=== PATIENT | female | born 1975 | race Caucasian/White ===

== ENCOUNTER → 2018-02-18 10:20 | Outpatient (CLI) | payer OTHER, SELFPAY ==
[2018-02-18 12:29] LABS: Free T3 2.7 pg/mL (2.18-3.98); T4 Free Direct 0.94 ng/dL (0.76-1.46); Thyroid Stim Hormone (TSH) 1.66 uIU/mL (0.358-3.74)
== END ==
PROVIDERS: Family Provider Internal Medicine; PCP Internal Medicine; Referring Provider Internal Medicine; Visit Provider Internal Medicine
DX: R63.5 Abnormal weight gain (principal)
CPT/HCPCS: 36415; 84439; 84443; 84481

== ENCOUNTER → 2018-03-07 14:55 | Outpatient (CLI) | payer OTHER, SELFPAY ==
--- NOTE | 2018-03-07 14:58 | BI_ITS ---
MAMMOGRAPHY - BILATERAL SCREENING REASON FOR EXAM: Female, 42 years old. Routine annual screening examination. PERTINENT HISTORY: Non-contributory. TECHNIQUE: Digital bilateral breast mauricio (3D mammographic acquisition) in the CC and MLO projections. 2-D mediolateral oblique (MLO) and craniocaudad (CC) views of both breasts were obtained. CAD: Full Field Digital Mammography with Computer Added Detection was performed. COMPARISON: Comparison is made with prior examination dated March 01, 2017 and February 25, 2016. FINDINGS: Breast Composition: The breasts are heterogeneously dense, which may obscure small masses. There are no dominant masses or suspicious calcifications. Stable small bilateral axillary lymph nodes. No other significant abnormalities are identified. There has been no significant change since the prior study. BI/SCREENING MAMM (CAD), BILAT IMPRESSION: Stable bilateral screening mammogram. Yearly follow-up mammogram recommended. (A) ASSESSMENT CATEGORY: BIRADS Category 2: Benign. A letter regarding these results will be sent to the patient by the facility within 30 days. Approximately 10% of breast cancers are not detected by mammography. A normal mammogram should not delay biopsy of a clinically suspicious abnormality. [id number] Electronically Signed: Luis Angel Bettencourt MD at 16:06 EST Tel [phone], Service support ,
== END ==
PROVIDERS: Family Provider Internal Medicine; PCP Internal Medicine; Referring Provider Obstetrics & Gynecology; Visit Provider Obstetrics & Gynecology
DX: Z12.31 Encounter for screening mammogram for malignant neoplasm of breast (principal)
CPT/HCPCS: 77063; 77067

== ENCOUNTER → 2019-03-10 15:01 | Outpatient (CLI) | payer OTHER, SELFPAY ==
--- NOTE | 2019-03-10 15:03 | BI_ITS ---
MAMMOGRAPHY - BILATERAL SCREENING REASON FOR EXAM: Female, 43 years old. Routine annual screening examination. PERTINENT HISTORY: Non-contributory. TECHNIQUE: Digital bilateral breast dheeraj (3D mammographic acquisition) in the CC and MLO projections. 2-D mediolateral oblique (MLO) and craniocaudad (CC) views of both breasts were obtained. CAD: Full Field Digital Mammography with Computer Added Detection was performed. COMPARISON: Comparison is made with prior study dated March 07, 2019 and March 01, 2017. FINDINGS: Breast Composition: The breasts are heterogeneously dense, which may obscure small masses. There are no dominant masses or suspicious calcifications. No other significant abnormalities are identified. There has been no significant change since the prior study. BI/SCREEN MAMM (CAD) W/DHEERAJ BILAT IMPRESSION: Stable bilateral screening mammogram. Yearly follow-up mammogram recommended. (A) ASSESSMENT CATEGORY: BIRADS Category 1: Negative. A letter regarding these results will be sent to the patient by the facility within 30 days. Approximately 10% of breast cancers are not detected by mammography. A normal mammogram should not delay biopsy of a clinically suspicious abnormality. [id number] Electronically Signed: Luis Angel Bettencourt, at 8:32 EST , Service support ,
== END ==
PROVIDERS: Family Provider Internal Medicine; PCP Internal Medicine; Referring Provider Obstetrics & Gynecology; Visit Provider Obstetrics & Gynecology
DX: Z12.31 Encounter for screening mammogram for malignant neoplasm of breast (principal)
CPT/HCPCS: 77063; 77067

== ENCOUNTER → 2020-03-11 14:55 | Outpatient (CLI) | payer OTHER, SELFPAY ==
--- NOTE | 2020-03-11 14:56 | BI_ITS ---
MAMMOGRAPHY - BILATERAL SCREENING REASON FOR EXAM: Female, 44 years old. Routine annual screening examination. PERTINENT HISTORY: Non-contributory. History of melanoma. TECHNIQUE: Digital bilateral breast dheeraj (3D mammographic acquisition) in the CC and MLO projections. 2-D mediolateral oblique (MLO) and craniocaudad (CC) views of both breasts were obtained. CAD: Full Field Digital Mammography with Computer Added Detection was performed. COMPARISON: Comparison is made with prior study dated 03/10/2019 and 03/07/2018. FINDINGS: Breast Composition: The breasts are heterogeneously dense, which may obscure small masses. There are no dominant masses or suspicious calcifications. No other significant abnormalities are identified. There has been no significant change since the prior study. BI/SCREEN MAMM (CAD) W/DHEERAJ BILAT IMPRESSION: Stable bilateral screening mammogram. Yearly follow-up mammogram recommended. (A) ASSESSMENT CATEGORY: BIRADS Category 1: Negative. A letter regarding these results will be sent to the patient by the facility within 30 days. Approximately 10% of breast cancers are not detected by mammography. A normal mammogram should not delay biopsy of a clinically suspicious abnormality. [id number] Electronically Signed: Luis Angel Bettencourt, at 15:59 EST , Service support ,
== END ==
PROVIDERS: PCP Internal Medicine; Referring Provider Internal Medicine; Visit Provider Internal Medicine
DX: Z12.31 Encounter for screening mammogram for malignant neoplasm of breast (principal)
CPT/HCPCS: 77063; 77067

== ENCOUNTER → 2021-03-14 07:16 | Outpatient (CLI) | payer OTHER, SELFPAY ==
--- NOTE | 2021-03-14 07:18 | BI_ITS ---
MAMMOGRAPHY - BILATERAL SCREENING REASON FOR EXAM: Female, 45 years old. Routine annual screening examination. PERTINENT HISTORY: Non-contributory. TECHNIQUE: Digital bilateral breast dheeraj (3D mammographic acquisition) in the CC and MLO projections. 2-D mediolateral oblique (MLO) and craniocaudad (CC) views of both breasts were obtained. CAD: Full Field Digital Mammography with Computer Added Detection was performed. COMPARISON: Comparison is made with prior examination dated 03/11/2020 and 03/10/2019. FINDINGS: Breast Composition: The breasts are heterogeneously dense, which may obscure small masses. There are no dominant masses or suspicious calcifications. No other significant abnormalities are identified. There has been no significant change since the prior study. BI/SCRN MAMM (CAD)W/DHEERAJ BILAT IMPRESSION: Stable bilateral screening mammogram. Yearly follow-up mammogram recommended. (A) ASSESSMENT CATEGORY: BIRADS Category 1: Negative. A letter regarding these results will be sent to the patient by the facility within 30 days. Approximately 10% of breast cancers are not detected by mammography. A normal mammogram should not delay biopsy of a clinically suspicious abnormality. [id number] Electronically Signed: Luis Angel Bettencourt MD at 8:23 EST , Service support ,
== END ==
PROVIDERS: PCP Internal Medicine; Referring Provider Internal Medicine; Visit Provider Internal Medicine
DX: Z12.31 Encounter for screening mammogram for malignant neoplasm of breast (principal)
CPT/HCPCS: 77063; 77067

== ENCOUNTER → 2022-03-16 | Outpatient (CLI) | payer OTHER, SELFPAY ==
--- NOTE | 2022-03-16 07:36 | BI_ITS ---
MAMMOGRAPHY - BILATERAL SCREENING REASON FOR EXAM: Female, 46 years old. Routine annual screening examination. PERTINENT HISTORY: Non-contributory. TECHNIQUE: Digital bilateral breast dheeraj (3D mammographic acquisition) in the CC and MLO projections. 2-D mediolateral oblique (MLO) and craniocaudad (CC) views of both breasts were obtained. CAD: Full Field Digital Mammography with Computer Added Detection was performed. COMPARISON: Comparison is made with prior study dated 03/14/2021 and 03/11/2020. FINDINGS: Breast Composition: The breasts are heterogeneously dense, which may obscure small masses. There are no dominant masses or suspicious calcifications. No other significant abnormalities are identified. There has been no significant change since the prior study. BI/SCRN MAMM (CAD)W/DHEERAJ BILAT IMPRESSION: Stable bilateral screening mammogram. Yearly follow-up mammogram recommended. (A) ASSESSMENT CATEGORY: BIRADS Category 1: Negative. A letter regarding these results will be sent to the patient by the facility within 30 days. Approximately 10% of breast cancers are not detected by mammography. A normal mammogram should not delay biopsy of a clinically suspicious abnormality. [id number] Electronically Signed: Luis Angel Bettencourt MD at 8:26 EST ,
== END | disposition home or self-care (01) ==
LOC: OPBI 07:31
PROVIDERS: PCP Internal Medicine; Referring Provider Internal Medicine; Visit Provider Internal Medicine
DX: Z12.31 Encounter for screening mammogram for malignant neoplasm of breast (principal)
CPT/HCPCS: 77063; 77067

== ENCOUNTER → 2023-03-19 | Outpatient (CLI) | payer OTHER, SELFPAY ==
--- NOTE | 2023-03-19 07:16 | BI_ITS ---
MAMMOGRAPHY - BILATERAL SCREENING REASON FOR EXAM: Female, 47 years old. Routine annual screening examination. PERTINENT HISTORY: Non-contributory. TECHNIQUE: Digital bilateral breast dheeraj (3D mammographic acquisition) in the CC and MLO projections. 2-D mediolateral oblique (MLO) and craniocaudad (CC) views of both breasts were obtained. CAD: Full Field Digital Mammography with Computer Added Detection was performed. COMPARISON: Comparison is made with prior study dated March 16, 2022 and March 14, 2021. FINDINGS: Breast Composition: The breasts are heterogeneously dense, which may obscure small masses. There are no dominant masses or suspicious calcifications. No other significant abnormalities are identified. There has been no significant change since the prior study. BI/SCRN MAMM (CAD)W/DHEERAJ BILAT IMPRESSION: Stable bilateral screening mammogram. Yearly follow-up mammogram recommended. (A) ASSESSMENT CATEGORY: BIRADS Category 1: Negative. A letter regarding these results will be sent to the patient by the facility within 30 days. Approximately 10% of breast cancers are not detected by mammography. A normal mammogram should not delay biopsy of a clinically suspicious abnormality. [id number] Electronically Signed: Luis Angel Bettencourt MD at 8:51 EST ,
== END | disposition home or self-care (01) ==
PROVIDERS: PCP Internal Medicine; Referring Provider Internal Medicine; Visit Provider Internal Medicine
DX: Z12.31 Encounter for screening mammogram for malignant neoplasm of breast (principal)
CPT/HCPCS: 77063; 77067

== ENCOUNTER 2023-04-21 07:41 | Day surgery (SDC) | payer OTHER, SELFPAY ==
--- NOTE | 2023-04-20 08:45 | COLBX_PTH ---
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 Fritz Coker DO : 1975 BED: DIS: 04/21/2023 SPEC #: [id number] RECD: 04/21/23 11:35 STATUS: JIMMY LIU #: [id number] AVERY: 04/20/23 08:[address]: Fritz Coker DEPT: SURGICAL PATHOLOGY RECD BY: Marge Lyons ENTERED: 04/21/23 11:36 SP TYPE: COLON BX OTHR DR: Dr. Sheree Evans DO Tissues: Sigmoid colon biopsy Rectum, NOS Procedures: Surgery Specimen Level IV HEADER OPERATION: Colonoscopy - open access PRE-OP DIAGNOSIS: Routine colon screening TISSUE SUBMITTED: A - Sigmoid polyp, B - Rectal polyp MICROSCOPIC DIAGNOSIS A. Sigmoid polyp, biopsy: Hyperplastic polyp. B. Rectal polyp, biopsy: Hyperplastic polyp. NIURKA:[email or web address] 04/22/2023 MICROSCOPIC DESCRIPTION Slides are reviewed. GROSS DESCRIPTION A - Received in fixative is one container labeled with the patient's name and designated sigmoid polyp. The specimen consists of one irregular fragment of light lynch soft tissue that measures 0.8 x 0.2 x 0.1 cm. The specimen is totally submitted in one cassette. B - Received in fixative is one container labeled with the patient's name and designated rectal polyp. The specimen consists of one irregular fragment of light lynch soft tissue that measures 0.3 x 0.3 x 0.1 cm. The specimen is totally submitted in one cassette. / NIURKA:rodolfo 04/21/2023 TC:1 CPT: 69403 x2
--- OUTSIDE RECORDS SUMMARY | 2023-04-21 07:51 | XMS RPT_ITS | CCD ---
Author Name Unknown Address [address] [place] [address] Organization [facility] Care Team Providers Care Engineering Job Titles Name Role Phone Cristina Sheree Unavailable SheriElianaen Isrrael Unavailable Cristina Sheree Unavailable Nicolasa Kohli Unavailable Estefany Estrada Unavailable Rosina Wolf Unavailable Hasmukh Angeloa Unavailable Unavailable Unavailable Unavailable Cristina Sheree Unavailable Unavailable Cristina Sheree Unavailable Unavailable Cristina Sheree Unavailable Rosina Wolf Unavailable Gravius, Emilie Unavailable Unavailable Regino, eda Unavailable Unavailable Unavailable Unavailable Hawa Martinez Unavailable Unavailable Sheree Evans DO Unavailable Estefany Estrada Unavailable Sheri Tran Rosina Unavailable Vic PATIENT AMBASSADOR, RIO Unavailable Unavailable Regino, eda Unavailable Unavailable Slarb PATIENT AMBASSADOR, Cortney Unavailable Unavailable Gravius PROCESS LABORATORY SPECIALIST, Emilie Unavailable Unavailable Unavailable Unavailable Cristina SAXENA Sheree Unavailable [phone] Timmy Smith MD Unavailable [phone] [place] PATIENT AMBASSADOR, Stefano Unavailable Unavailable Allergies Allergy Classification Reported Allergen(s) Allergy Type Date of Onset Reaction(s) Facility (8 sources) Sulfonamides (Antibiotic); Translations: [Sulfa Drugs] allergy to substance [facility] Work Phone: Medications Completed/Discontinued Medications Medication Drug Class(es) Dates Sig (Normalized) Sig (Original) cefdinir 300 mg oral capsule (8 sources) Cephalosporin Antibacterial Start: 05-01-2009 End: 09-08-2012 take 1 capsule by mouth twice daily OMNICEF, 300MG (Oral Capsule) 1 (one) Capsule bid for 0 days Quantity: 14 {Capsule} Refills: 0 Ordered: 01-May-2009 Tesha Wilson RN Start : 01-May-2009 End : 08-Sep-2012 Discontinued Comments: This order discontinued per [facility]. Problems Active Problems Problem Classification Problem Date Documented Da te Episodic/Chronic Abdominal pain (18 sources) Generalized abdominal pain; Translations: [Abdominal pain] Resolved: 08-25-2013 02-18-2015 Episodic Administrative/social admission (10 sources) Counseling procedure with explicit context; Translations: [Patient encounter status] Resolved: 12-13-2020 02-16-2018 Episodic Cancer; other and unspecified primary (16 sources) H/O Malignant melanoma; Translations: [History of melanoma] 02-16-2018 Episodic Past or Other Problems Problem Classification Problem Date Documented Da te Episodic/Chronic Headache, including migraine (11 sources) Headache; Translations: [Tension-type headache] Onset: 05-01-2009 Resolved: 08-14-2008 01-08-2015 Episodic Results Test Name Value Interpretation Reference Range Facil ity Vital Signs Date Time Vital Sign Value Performing Clinician Facility 01-20-2023 10:53-0400 Body height 165.1 cm [facility] Work Phone: 01-20-2023 10:53-0400 Body mass index (BMI) [Ratio] 27.98 kg/m2 [facility] Work Phone: 01-20-2023 10:53-0400 Body surface area Derived from formula 1.84 m2 [facility] Work Phone: 01-20-2023 10:53-0400 Body temperature 97.4 [degF] Stefano Sang PATIENT AMBASSADOR [facility] Work Phone: 01-20-2023 10:53-0400 Body weight 76.26 kg [facility] Work Phone: 01-20-2023 10:53-0400 Diastolic blood pressure 72 mm[Hg] [facility] Work Phone: Encounters Encounter Date Encounter Type Care Provider Facility Start: 01-20-2023 End: 01-20-2023 Patient encounter status [facility] Work Phone: Start: 01-20-2023 End: 01-20-2023 Periodic preventive med est patient 40-64yrs Sheree Cristina DO Work Phone: [facility] Start: 12-15-2021 End: 12-15-2021 Patient encounter status Sheree Cristina DO Work Phone: [facility] Work Phone: Start: 12-15-2021 End: 12-15-2021 Periodic preventive med est patient 40-64yrs Sheree Cristina DO Work Phone: [facility] Start: 05-26-2021 End: 05-26-2021 Phone Encounter Sheree Cristina DO Work Phone: [facility] Start: 02-07-2021 End: 02-07-2021 Annotation/Addendum Sheree Cristina DO Work Phone: [facility] Start: 02-07-2021 End: 02-07-2021 Patient encounter status eda Lacy [facility] Work Phone: Start: 12-13-2020 End: 12-13-2020 Periodic preventive med est patient 40-64yrs Sheree Cristina DO Work Phone: [facility] Start: 12-13-2020 End: 12-13-2020 Physical examination RIO Ho PATIENT AMBASSADOR [facility] Work Phone: Start: 06-20-2020 End: 06-20-2020 Annotation/Addendum Sheree Evans [facility] Start: 12-14-2019 End: 12-14-2019 Periodic preventive med est patient 40-64yrs Sheree Evans [facility] Start: 12-14-2019 End: 12-14-2019 Physical examination Sheree Evans DO Work Phone: [facility] Work Phone: Start: 04-26-2019 End: 04-26-2019 Ophthalmic examination and evaluation Sheree Evans DO Work Phone: [facility] Start: 04-26-2019 End: 04-26-2019 Phone Encounter Sheree Evans [facility] Start: 04-25-2019 End: 02-07-2021 Annotation/Addendum Sheree Evans DO Work Phone: [facility] Start: 04-25-2019 End: 02-07-2021 Patient encounter status Sheree Evans DO Work Phone: [facility] Start: 04-25-2019 Review [facility] Start: 04-19-2019 End: 04-19-2019 Phone Encounter Sheree Evans [facility] Start: 02-17-2018 Patient encounter procedure Sheree Evans [facility] Start: 02-16-2018 End: 02-16-2018 Patient encounter procedure Sheree Evans DO Work Phone: [facility] Start: 02-16-2018 End: 02-16-2018 Periodic preventive med est patient 40-64yrs Sheree Evans [facility] Start: 03-31-2017 End: 03-31-2017 Annotation/Addendum Sheree Evans [facility] Start: 03-16-2017 End: 03-16-2017 Phone Encounter Sheree Evans [facility] Start: 08-25-2013 End: 08-25-2013 Patient encounter Sheree Evans [facility] Start: 08-25-2013 End: 08-25-2013 Physical examination Sheree Evans DO Work Phone: [facility] Start: 09-09-2012 End: 09-09-2012 Phone Encounter Sheree Evans [facility] Start: 09-08-2012 End: 09-08-2012 Patient encounter Sheree Evans [facility] Start: 05-01-2009 End: 05-01-2009 Patient encounter Sheree Evans [facility] Start: 03-28-2009 End: 03-28-2009 Phone Encounter Sheree Evans [facility] Start: 04-25-2007 End: 04-25-2007 Office outpatient visit 25 minutes Sheree Evans [facility] Start: 04-21-2007 End: 04-21-2007 Historical Summary Sheree Evans [facility] Ophthalmic examinati on and evaluation RIO Ho LPN [facility] Work Phone: Ophthalmic examinati on and evaluation Emilie Garcia [facility] Work Phone: Patient encounter procedure RIO Ho LPN [facility] Work Phone: Patient encounter procedure Emilie Garcia [facility] Work Phone: Patient encounter procedure Emilie Garcia [facility] Work Phone: Patient encounter procedure Stefano Domínguez [facility] Work Phone: Patient encounter status Sheree Evans DO Work Phone: [facility] Work Phone: Physical examination Emiliejose francisco Adamskristie [facility]; [facility] Work Phone: Procedures Date Procedure Procedure Detail Performing Clinician Start: 03-16-2022 End: 03-16-2022 SCRN MAMM (CAD)W/DHEERAJ BILAT Procedure Note: See Note; NOTES: [facility] Imaging Services [address] [place] [address] SCRN MAMM (CAD)W/DHEERAJ BILAT MR#: [id number] Acct: [id number] Name: VINITA PLUMMER Rep #: [id number] : 1975 F 46 From: Luis Angel bonilla MD PCP: Dr. Sheree Evans DO Status: REG CLI Study: SCRN MAMM (CAD)W/DHEERAJ BILAT Date of Exam: 03/05 05/27 Exam# [id number] Ordering Dr: Sheree Eavns DO MAMMOGRAPHY - BILATERAL SCREENING REASON FOR EXAM: Female, 46 years old. Routine annual screening examination. PERTINENT HISTORY: Non-contributory. TECHNIQUE: Digital bilateral breast dheeraj (3D mammographic acquisition) in the CC and MLO projections. 2-D mediolateral oblique (MLO) and craniocaudad (CC) views of both breasts were obtained. CAD: Full Field Digital Mammography with Computer Added Detection was performed. COMPARISON: Comparison is made with prior study dated 03/14/2021 and 03/11/2020. FINDINGS: Breast Composition: The breasts are heterogeneously dense, which may obscure small masses. There are no dominant masses or suspicious calcifications. No other significant abnormalities are identified. There has been no significant change since the prior study. BI/SCRN MAMM (CAD)W/DHEERAJ BILAT IMPRESSION: Stable bilateral screening mammogram. Yearly follow-up mammogram recommended. (A) ASSESSMENT CATEGORY: BIRADS Category 1: Negative. A letter regarding these results will be sent to the patient by the facility within 30 days. Approximately 10% of breast cancers are not detected by mammography. A normal mammogram should not delay biopsy of a clinically suspicious abnormality. [id number] Electronically Signed: Luis Angel Bettencourt MD at 8:26 EST , CC: Dr. Sheree Evans DO Ed Teacher: Signed Sheree Evans DO Work Phone: Start: 03-14-2021 End: 03-14-2021 SCRN MAMM (CAD)W/DHEERAJ BILAT Comments: See Note; NOTES: [facility] Imaging Services [address] [place] [address] SCRN MAMM (CAD)W/DHEERAJ BILAT MR#: [id number] Acct: [id number] Name: VINITA PLUMMER Rep #: [id number] : 1975 F 45 From: Luis Angel bonilla MD PCP: Dr. Sheree Evans DO Status: REG CLI Study: SCRN MAMM (CAD)W/DHEERAJ BILAT Date of Exam: 03/05 Exam# [id number] Ordering Dr: Sheree Evans DO MAMMOGRAPHY - BILATERAL SCREENING REASON FOR EXAM: Female, 45 years old. Routine annual screening examination. PERTINENT HISTORY: Non-contributory. TECHNIQUE: Digital bilateral breast dheeraj (3D mammographic acquisition) in the CC and MLO projections. 2-D mediolateral oblique (MLO) and craniocaudad (CC) views of both breasts were obtained. CAD: Full Field Digital Mammography with Computer Added Detection was performed. COMPARISON: Comparison is made with prior examination dated 03/11/2020 and 03/10/2019. FINDINGS: Breast Composition: The breasts are heterogeneously dense, which may obscure small masses. There are no dominant masses or suspicious calcifications. No other significant abnormalities are identified. There has been no significant change since the prior study. BI/SCRN MAMM (CAD)W/DHEERAJ BILAT IMPRESSION: Stable bilateral screening mammogram. Yearly follow-up mammogram recommended. (A) ASSESSMENT CATEGORY: BIRADS Category 1: Negative. A letter regarding these results will be sent to the patient by the facility within 30 days. Approximately 10% of breast cancers are not detected by mammography. A normal mammogram should not delay biopsy of a clinically suspicious abnormality. [id number] Electronically Signed: Luis Angel Bettencourt MD at 8:23 EST , Service support , CC: Dr. Sheree Evans DO Ed Teacher: Signed Sheree Evans DO Work Phone: Start: 03-11-2020 End: 03-11-2020 SCREEN MAMM (CAD) W/DHEERAJ BILAT Comments: See Note; NOTES: [facility] Imaging Services [address] [place] [id number] SCREEN MAMM (CAD) W/DHEERAJ BILAT MR#: [id number] Acct: [id number] Name: VINITA PLUMMER Rep #: [id number] : 1975 F 44 From: Luis Angel bonilla MD PCP: Dr. Sheree Evans DO Status: REG CLI Study: SCREEN MAMM (CAD) W/DHEERAJ BILAT Date of Exam: 05/12/19 Exam# [id number] Ordering Dr: Sheree Evans DO MAMMOGRAPHY - BILATERAL SCREENING REASON FOR EXAM: Female, 44 years old. Routine annual screening examination. PERTINENT HISTORY: Non-contributory. History of melanoma. TECHNIQUE: Digital bilateral breast dheeraj (3D mammographic acquisition) in the CC and MLO projections. 2-D mediolateral oblique (MLO) and craniocaudad (CC) views of both breasts were obtained. CAD: Full Field Digital Mammography with Computer Added Detection was performed. COMPARISON: Comparison is made with prior study dated 03/10/2019 and 03/07/2018. FINDINGS: Breast Composition: The breasts are heterogeneously dense, which may obscure small masses. There are no dominant masses or suspicious calcifications. No other significant abnormalities are identified. There has been no significant change since the prior study. BI/SCREEN MAMM (CAD) W/DHEERAJ BILAT IMPRESSION: Stable bilateral screening mammogram. Yearly follow-up mammogram recommended. (A) ASSESSMENT CATEGORY: BIRADS Category 1: Negative. A letter regarding these results will be sent to the patient by the facility within 30 days. Approximately 10% of breast cancers are not detected by mammography. A normal mammogram should not delay biopsy of a clinically suspicious abnormality. [id number] Electronically Signed: Luis Angel Bettencourt, at 15:59 EST , Service support , CC: Dr. Sheree Evans DO Ed Teacher: Signed Sheree Evans Work Phone: Start: 03-10-2019 End: 03-13-2019 SCREEN MAMM (CAD) W/DHEERAJ BILAT Comments: See Note; NOTES: [facility] Imaging Services [address] [place] [address] SCREEN MAMM (CAD) W/DHEERAJ BILAT MR#: [id number] Acct: [id number] Name: VINITA PLUMMER Rep #: [id number] : 1975 F 43 From: Luis Angel Bettencourt MD PCP: Sheree Evans DO Status: [facility] Study: SCREEN MAMM (CAD) W/DHEERAJ BILAT Date of Exam: 03/10/19 Exam# [id number] Ordering Dr: Garima Cuevas MD MAMMOGRAPHY - BILATERAL SCREENING REASON FOR EXAM: Female, 43 years old. Routine annual screening examination. PERTINENT HISTORY: Non-contributory. TECHNIQUE: Digital bilateral breast dheeraj (3D mammographic acquisition) in the CC and MLO projections. 2-D mediolateral oblique (MLO) and craniocaudad (CC) views of both breasts were obtained. CAD: Full Field Digital Mammography with Computer Added Detection was performed. COMPARISON: Comparison is made with prior study dated March 07, 2019 and March 01, 2017. FINDINGS: Breast Composition: The breasts are heterogeneously dense, which may obscure small masses. There are no dominant masses or suspicious calcifications. No other significant abnormalities are identified. There has been no significant change since the prior study. BI/SCREEN MAMM (CAD) W/DHEERAJ BILAT IMPRESSION: Stable bilateral screening mammogram. Yearly follow-up mammogram recommended. (A) ASSESSMENT CATEGORY: BIRADS Category 1: Negative. A letter regarding these results will be sent to the patient by the facility within 30 days. Approximately 10% of breast cancers are not detected by mammography. A normal mammogram should not delay biopsy of a clinically suspicious abnormality. [id number] Electronically Signed: Luis Angel Bettencourt, at 8:32 EST , Service support , CC: Garima Cuevas MD; Sheree Evans DO Ed Teacher: Signed Sheree Evans Start: 03-07-2018 End: 03-07-2018 SCREENING MAMM (CAD), BILAT Comments: See Note; NOTES: [facility] Imaging Services [address] [place] [id number] SCREENING MAMM (CAD), BILAT MR#: [id number] Acct: [id number] Name: KAVITHAVINITA J Rep #: [id number] : 1975 F 42 From: Luis Angel Bettencourt MD PCP: Sheree Evans DO Status: [facility] Study: SCREENING MAMM (CAD), BILAT Date of Exam: 03/07/18 Exam# [id number] Ordering Dr: Garima Cuevas MD MAMMOGRAPHY - BILATERAL SCREENING REASON FOR EXAM: Female, 42 years old. Routine annual screening examination. PERTINENT HISTORY: Non-contributory. TECHNIQUE: Digital bilateral breast dheeraj (3D mammographic acquisition) in the CC and MLO projections. 2-D mediolateral oblique (MLO) and craniocaudad (CC) views of both breasts were obtained. CAD: Full Field Digital Mammography with Computer Added Detection was performed. COMPARISON: Comparison is made with prior examination dated March 01, 2017 and February 25, 2016. FINDINGS: Breast Composition: The breasts are heterogeneously dense, which may obscure small masses. There are no dominant masses or suspicious calcifications. Stable small bilateral axillary lymph nodes. No other significant abnormalities are identified. There has been no significant change since the prior study. BI/SCREENING MAMM (CAD), BILAT IMPRESSION: Stable bilateral screening mammogram. Yearly follow-up mammogram recommended. (A) ASSESSMENT CATEGORY: BIRADS Category 2: Benign. A letter regarding these results will be sent to the patient by the facility within 30 days. Approximately 10% of breast cancers are not detected by mammography. A normal mammogram should not delay biopsy of a clinically suspicious abnormality. [id number] Electronically Signed: Luis Angel Bettencourt MD at 16:06 EST Tel [phone], Service support , CC: Garima Cuevas MD; Sheree Evans DO Ed Teacher: Signed Sheree Evans Start: 04-05-2017 End: 04-05-2017 Excision of melanoma Tea Angelo Plan of Treatment Date Care Activity Detail Author Start: 01-20-2023 Procedure Education Eprescribed prescriptions (G8553) [facility] Work Phone: Start: 01-20-2023 Provider Instructions for Treatment Reviewed Lab [facility] Work Phone: Start: 12-15-2021 Procedure Education Eprescribed prescriptions (G8553) [facility] Work Phone: Start: 12-15-2021 Provider Instructions for Treatment Reviewed Lab [facility] Work Phone: Start: 12-13-2020 Provider Instructions for Treatment Reviewed Lab [facility] Work Phone: Start: 12-14-2019 Procedure Education Eprescribed prescriptions (G8553) [facility] Work Phone: Start: 12-14-2019 Provider Instructions for Treatment Reviewed Lab [facility] Work Phone: Start: 02-16-2018 Assay of thyroid stimulating hormone tsh TSH (81937) [facility] Work Phone: Start: 02-16-2018 Thyrotropin Qn TSH (47226) [facility] Work Phone: Start: 02-16-2018 Assay of free thyroxine T4, FREE (THYROXINE) (26314) [facility] Work Phone: Start: 02-16-2018 T4 free mass conc T4, FREE (THYROXINE) (02223) [facility] Work Phone: Start: 02-16-2018 Assay of triiodothyronine t3 free T3, FREE (TRIDOTHYRONINE) (52783) [facility] Work Phone: Start: 02-16-2018 T3 free mass conc T3, FREE (TRIDOTHYRONINE) (77945) [facility] Work Phone: Start: 02-16-2018 Procedure Education Eprescribed prescriptions (G8553) [facility] Work Phone: Start: 08-25-2013 Provider Instructions for Treatment Reviewed Lab [facility] Work Phone: Start: 05-01-2009 Provider Instructions for Treatment I/D Cyst/Abscess [facility] Work Phone: Start: 04-25-2007 Provider Instructions for Treatment exercises [facility] Work Phone: [facility] Work Phone: Encounter for an nual general medical examination with abnormal findings in adult : Eprescribed prescriptions (G8553) [facility] Work Phone: [facility] Work Phone: [facility] Work Phone: [facility] Work Phone: [facility] Work Phone: Payers Date Payer Category Payer Unknown [id number] 2006 Unknown [id number] 1975 Unknown [id number] Unknown Social History Date Type Detail Facility Alcohol Use [facility] Work Phone: Instructions Note Date & Type Note Facility [facility] Work Phone: Instructions Note Date & Type Note Facility [facility] Work Phone: Instructions Note Date & Type Note Facility [facility] Work Phone: Instructions Note Date & Type Note Facility [facility] Work Phone: Instructions Note Date & Type Note Facility [facility] Work Phone: Instructions Name Dates Details Encounter for annual general medical examination with abnormal findings in adult : How to access health information online Indication:Encounter for annual general medical examination with abnormal findings in adult Encounter for annual general medical examination with abnormal findings in adult : How to access health information online - Detail Indication:Encounter for annual general medical examination with abnormal findings in adult Encounter for annual general medical examination with abnormal findings in adult : Patient Instructions Indication:Encounter for annual general medical examination with abnormal findings in adult Constipation : Patient Instr uctions Indication:Constipation Name Dates Details How to access health informa tion online Indication:Non-smoker Start:14-Dec-2019 Instruction Type:Patient Education How to access health informa tion online - Detail Indication:Non-smoker Start:14-Dec-2019 Instruction Type:Patient Education Patient Instructions Indication:Non-smoker Start:14-Dec-2019 Instruction Type:Provider Instructions for Treatment How to access health informa tion online Indication:Encounter for annual general medical examination with abnormal findings in adult Start:16-Feb-2018 Instruction Type:Patient Education How to access health informa tion online - Detail Indication:Encounter for annual general medical examination with abnormal findings in adult Start:16-Feb-2018 Instruction Type:Patient Education Patient Instructions Indication:Encounter for annual general medical examination with abnormal findings in adult Start:16-Feb-2018 Instruction Type:Provider Instructions for Treatment Patient Instructions Indication:Constipation Start:08-Sep-2012 Instruction Type:Provider Instructions for Treatment Name Dates Details How to access health informa tion online Indication:Non-smoker Start:14-Dec-2019 Instruction Type:Patient Education How to access health informa tion online - Detail Indication:Non-smoker Start:14-Dec-2019 Instruction Type:Patient Education Patient Instructions Indication:Non-smoker Start:14-Dec-2019 Instruction Type:Provider Instructions for Treatment How to access health informa tion online Indication:Encounter for annual general medical examination with abnormal findings in adult Start:16-Feb-2018 Instruction Type:Patient Education How to access health informa tion online - Detail Indication:Encounter for annual general medical examination with abnormal findings in adult Start:16-Feb-2018 Instruction Type:Patient Education Patient Instructions Indication:Encounter for annual general medical examination with abnormal findings in adult Start:16-Feb-2018 Instruction Type:Provider Instructions for Treatment Patient Instructions Indication:Constipation Start:08-Sep-2012 Instruction Type:Provider Instructions for Treatment Summary Purpose Family History No Family History Records Found Advance Directives No Advanced Directives Records Found Additional Source Comments INFORMATION SOURCE (unrecogn ized section and content) FOR RECORDS PERTAINING TO PATIENTS WHO ARE OR HAVE BEEN ENROLLED IN A CHEMICAL DEPENDENCY/SUBSTANCEABUSE PROGRAM, SOME INFORMATION MAY BE OMITTED. This clinical summary was aggregated from multiple sources. Caution should be exercised in using it in the provision of clinical care. This summary normalizes information from multiple sources, and as a consequence, information in this document may materially change the coding, format and clinical context of patient data. In addition, data may be omitted in some cases. CLINICAL DECISIONS SHOULD BE BASED ON THE PRIMARY CLINICAL RECORDS. [facility]. provides no warranty or guarantee of the accuracy or completeness of information in this document.
[2023-04-21] MEDS: Lactated Ringers 1,000 ML 15 ML IV (08:01)
[2023-04-21 08:02] VITALS: BP 133/75; PULSE 83; RESP 18; TEMP 36.8; O2SAT 97; BMI 28.1
--- NOTE | 2023-04-21 09:00 | HP.PCM_ITS ---
[facility] - General General Date of Admission: 04/21/23 Date of Service: 04/21/23 Chief Complaint: Screening colonoscopy HPI Narrative VINITA PLUMMER, is a 47 F who presents today for screening colonoscopy. She has not had a colonoscopy in the past. She has no family history of colon cancer or colon polyps. She is in very good health she only takes control on a daily basis and a multivitamin. [facility] Medical History (Updated 04/19/23 @ 12:09 by Lisa Palmer) Alcohol use Cancer Migraine headache Non-smoker Wears contact lenses Home Medications multivitamin with minerals-folic acid 200 mcg chewable tablet 1 tab PO DAILY 04/19/23 [History Last Taken Unknown] norethindrone acetate 5 mg tablet 5 mg PO DAILY 04/19/23 [History Last Taken Unknown] Allergy/AdvReac Type Severity Reaction Status Date / Time Sulfa (Sulfonamide Allergy Hives Verified 04/19/23 12:03 Antibiotics) Surgical History (Updated 03/08/23 @ 08:32 by Marry Pacheco) History of left salpingo-oophorectomy Hx of hysterectomy Hx of melanoma excision Social History (Updated 03/08/23 @ 08:33 by Marry Pacheco) household members: spouse current occupational status: employed current occupation: RN Smoking Status: Never smoker ROS Review of Systems ROS Unobtainable: other Constitutional Constitutional: Denies fatigue, fever(s), poor appetite, weight gain or weight loss ENT HEENT: Denies mouth lesions Cardiovascular Cardiovascular: Denies abdominal bloating, abdominal edema or abdominal pain Respiratory/Chest Respiratory/Chest: Denies change in mental status, change in phlegm color, chest congestion or chest tightness Gastrointestinal Gastrointestinal: Denies belching, bloating, change in bowel habits, change in stool character, chewing difficulty, coffee ground emesis, constipation, cramping, diarrhea, dyspepsia, dysphagia, early satiety, excessive flatus, fecal incontinence, heartburn, hematemesis, hematochezia, hemorrhoids, loose stools, melena, nausea, odynophagia, rectal bleeding, tenesmus, vomiting or weight changes Genitourinary Genitourinary: Denies abdominal discomfort, burning urination or itching Musculoskeletal Musculoskeletal: Reports as per HPI; Denies muscle weakness or myalgias Integumentary Integumentary: Denies jaundice Neurologic Neurologic: Denies lack of coordination or weakness Psychiatric Psychiatric: Denies confusion, depression, memory loss, mood swings, paranoia or suicidal ideation Endocrine Endocrinology: Denies systems reviewed and no addt'l complaints, except as documented Hematologic/Lymphatic Hematologic/Lymphatic: Denies anemia, easy bleeding, easy bruising or lymphadenopathy Allergic/Immunologic Allergic/Immunologic: Denies systems reviewed and no addt'l complaints, except as documented Vital Signs Vital Signs Vital Signs: 04/21/23 08:02 04/21/23 08:02 Temperature 98.2 F Temperature Source Temporal Pulse Rate 83 Respiratory Rate 18 Respiratory Pattern Normal Blood Pressure 133/75 H Blood Pressure Mean 94 Blood Pressure Source Monitor Blood Pressure Position Semi-Fowlers Blood Pressure Location Right Arm Pulse Ox 97 Oxygen Delivery Method Room Air Weight Weight: 169 lb Body Mass Index (BMI) 28.1 Physical Exam Const alert General Appearance: cooperative Orientation / Consciousness: oriented to person HEENT hearing grossly normal bilaterally Head and Scalp: normal to inspection Face and Sinus: face symmetric Nose: external nose normal Mouth: oral and palatal mucosa normal Eyes conjunctivae normal General Eye: normal appearance of both eyes Neck full ROM General: normal visual inspection Lymph Lymphatic: no lymphadenopathy noted Chest inspection of chest normal and palpation of chest normal Chest: symmetrical chest wall rise Resp normal respiratory effort Effort and Inspection: able to speak in complete sentences Cardio regular rate GI non-distended Percussion: normal to percussion Rectal Exam: deferred Neuro Speech: speech normal Gait (Neuro): normal gait Assessment & Plan Assessment/Plan (1) Encounter for screening for malignant neoplasm of colon: PLAN: She was explained alternatives, risk, benefits including not withstanding bleeding, infection, sepsis, perforation, need for emergent surgery and . She will have an ASA of 2.
[2023-04-21 09:28] VITALS: BP 107/67; BP 133/75; PULSE 72; RESP 16; TEMP 36.6; O2SAT 97
[2023-04-21 09:30] VITALS: BP 101/74; BP 133/75; PULSE 72; RESP 16; O2SAT 97
--- NOTE | 2023-04-21 09:31 | OP.CCLET_ITS ---
04/21/2023 Sheree Evans [address] [place] [address] Re : Colonoscopy procedure for Cassandra Herzog Dear Dr. Evans This procedure was performed on Friday, April 21, 2023. My impressions and recommendations are as follows: Impressions : - Two 10 mm polyps in the rectum and in the sigmoid colon, removed with a cold snare. Resected and retrieved. - The examination was otherwise normal on direct and retroflexion views. Recommendations : - Discharge patient to home. - Resume previous diet. - Continue present medications. - Await pathology results. - Repeat colonoscopy in 5 years for surveillance. My findings are described in the full procedure note, which is enclosed. If I can be of further assistance, please feel free to contact me at . Sincerely, Fritz Coker, 04/21/2023 9:30:40 AM This report has been signed electronically.
--- NOTE | 2023-04-21 09:31 | OP.COLON_ITS ---
Patient Name: Cassandra Herzog Procedure Date: 04/21/2023 9:03 AM Date of : 1975 Age: 47 Procedure: Colonoscopy Indications: Screening for colorectal malignant neoplasm Providers: Fritz Coker DO Referring MD: Sheree Evans Medicines: Monitored Anesthesia Care Patient Profile: This is a 47 year old female. Refer to note in patient chart for documentation of history and physical. Last Colonoscopy: none. The patient's first colonoscopy is today. Complications: No immediate complications. Procedure: Pre-Anesthesia Assessment: - Prior to the procedure, a History and Physical was performed, and patient medications and allergies were reviewed. The patient is competent. The risks and benefits of the procedure and the sedation options and risks were discussed with the patient. All questions were answered and informed consent was obtained. Patient identification and proposed procedure were verified by the physician in the pre-procedure area. Mental Status Examination: alert and oriented. Airway Examination: normal oropharyngeal airway and neck mobility. Respiratory Examination: clear to auscultation. Prophylactic Antibiotics: The patient does not require prophylactic antibiotics. Prior Anticoagulants: The patient has taken no anticoagulant or antiplatelet agents. ASA Grade Assessment: II - A patient with mild systemic disease. After reviewing the risks and benefits, the patient was deemed in satisfactory condition to undergo the procedure. The anesthesia plan was to use monitored anesthesia care (MAC). Immediately prior to administration of medications, the patient was re-assessed for adequacy to receive sedatives. The heart rate, respiratory rate, oxygen saturations, blood pressure, adequacy of pulmonary ventilation, and response to care were monitored throughout the procedure. The physical status of the patient was re-assessed after the procedure. After I obtained informed consent, the scope was passed under direct vision. Throughout the procedure, the patient's blood pressure, pulse, and oxygen saturations were monitored continuously. The pediatric colonoscope was introduced through the anus and advanced to the cecum, identified by appendiceal orifice and ileocecal valve. The colonoscopy was performed without difficulty. The patient tolerated the procedure well. The quality of the bowel preparation was adequate. The terminal ileum, ileocecal valve, appendiceal orifice, and rectum were photographed. Scope In: 9:12:47 AM Scope Withdrawal Time 0 hours 7 minutes 16 seconds Scope Out: 9:24:20 AM Total Procedure Duration Time 0 hours 11 minutes 33 seconds Findings: The perianal and digital rectal examinations were normal. Two sessile polyps were found in the rectum and sigmoid colon. The polyps were 10 mm in size. These polyps were removed with a cold snare. Resection and retrieval were complete. Verification of patient identification for the specimen was done. Estimated blood loss was minimal. The exam was otherwise without abnormality on direct and retroflexion views. Impression: - Two 10 mm polyps in the rectum and in the sigmoid colon, removed with a cold snare. Resected and retrieved. - The examination was otherwise normal on direct and retroflexion views. Recommendation: - Discharge patient to home. - Resume previous diet. - Continue present medications. - Await pathology results. - Repeat colonoscopy in 5 years for surveillance. Procedure Code(s): --- Professional --- 66561, Colonoscopy, flexible; with removal of tumor(s), polyp(s), or other lesion(s) by snare technique CPT copyright 2021 [employer]. All rights reserved. The codes documented in this report are preliminary and upon bung dropper review may be revised to meet current compliance requirements. Fritz Coker DO 04/21/2023 9:30:40 AM This report has been signed electronically. Number of Addenda: 0 Note Initiated On: 04/21/2023 9:03 AM
[2023-04-21 09:35] VITALS: BP 108/75; BP 133/75; PULSE 64; RESP 15; O2SAT 100
[2023-04-21 09:40] VITALS: BP 111/77; BP 133/75; PULSE 69; RESP 16; TEMP 36.4; O2SAT 99
[2023-04-21 09:56] VITALS: BP 133/75
== END 2023-04-21 10:16 | disposition home or self-care (01) ==
LOC: EN 07:41 → AC 07:42
PROVIDERS: PCP Internal Medicine; Referring Provider Internal Medicine; Visit Provider Internal Medicine Gastroenterology
PROC: 0DJD8ZZ Inspection of Lower Intestinal Tract, Via Natural or Artificial Opening Endoscopic (ICD-10-PCS; CPT 45378; principal; 2023-04-21 08:40)
DX: Z12.11 Encounter for screening for malignant neoplasm of colon (principal); K62.1 Rectal polyp; Z79.3 Long term (current) use of hormonal contraceptives; Z90.710 Acquired absence of both cervix and uterus; Z90.721 Acquired absence of ovaries, unilateral; K63.5 Polyp of colon
CPT/HCPCS: 45385; 88305; J7120; J2405

== ENCOUNTER → 2023-11-12 | Outpatient (CLI) | payer OTHER, SELFPAY ==
--- NOTE | 2023-11-12 14:19 | RAD_ITS ---
HISTORY: pain. TECHNIQUE: XR Shoulder Min 2 Views. COMPARISON: None. FINDINGS: BONES : No acute fracture identified. Mineralization unremarkable. JOINTS: No dislocation. Mild degenerative change. SOFT TISSUES: Right lung apex clear. RAD/Shoulder min 2 Views IMPRESSION: No acute fracture or dislocation identified in the right shoulder. Electronically Signed: Sarina Wagner MD at 14:43 EDT ,
== END | disposition home or self-care (01) ==
LOC: MTRAD 14:18
PROVIDERS: PCP Internal Medicine; Referring Provider Orthopaedic Surgery Sports Medicine; Visit Provider Orthopaedic Surgery Sports Medicine
DX: M25.511 Pain in right shoulder (principal)
CPT/HCPCS: 73030

== ENCOUNTER 2023-12-29 07:00 | Outpatient (RCR) | payer OTHER, SELFPAY | END 2023-12-29 19:00 | disposition home or self-care (01) | LOC: PT 07:00 | PROVIDERS: PCP Internal Medicine; Referring Provider Orthopaedic Surgery Sports Medicine; Visit Provider Orthopaedic Surgery Sports Medicine | DX: M25.511 Pain in right shoulder (principal) | CPT/HCPCS: 97110; 97161; 97530 ==

== ENCOUNTER → 2024-03-21 | Outpatient (CLI) | payer OTHER, SELFPAY ==
--- NOTE | 2024-03-21 07:12 | BI_ITS ---
MAMMOGRAPHY - BILATERAL SCREENING REASON FOR EXAM: Female, 48 years old. Routine annual screening examination. PERTINENT HISTORY: Non-contributory. TECHNIQUE: Digital bilateral breast dheeraj (3D mammographic acquisition) in the CC and MLO projections. 2-D mediolateral oblique (MLO) and craniocaudad (CC) views of both breasts were obtained. CAD: Full Field Digital Mammography with Computer Added Detection was performed. COMPARISON: Comparison is made with prior study dated March 19, 2023 and March 16, 2022. FINDINGS: Breast Composition: The breasts are heterogeneously dense, which may obscure small masses. There is a 6.3 mm x 4.7 mm well-defined nodule in the upper lateral aspect of the left breast. Correlation with ultrasound is recommended. Stable small benign-appearing bilateral axillary lymph nodes. No other significant abnormalities are identified. BI/SCRN MAMM (CAD)W/DHEERAJ BILAT IMPRESSION: 6.3 mm x 4.7 mm well-defined nodule in the upper lateral aspect of the left breast as described. Sonographic correlation recommended. ASSESSMENT CATEGORY: BIRADS Category 0: Incomplete. Need additional imaging evaluation. A letter regarding these results will be sent to the patient by the facility within 30 days. Approximately 10% of breast cancers are not detected by mammography. A normal mammogram should not delay biopsy of a clinically suspicious abnormality. [id number] Electronically Signed: Luis Angel Bettencourt MD at 9:15 EST ,
== END | disposition home or self-care (01) ==
LOC: OPBI 07:12 → SDC 04-13 09:10
PROVIDERS: PCP Internal Medicine; Referring Provider Nurse Practitioner Family; Visit Provider Nurse Practitioner Family
DX: Z12.31 Encounter for screening mammogram for malignant neoplasm of breast (principal)
CPT/HCPCS: 77063; 77067

== ENCOUNTER → 2024-03-27 | Outpatient (CLI) | payer OTHER, SELFPAY ==
--- NOTE | 2024-03-27 07:57 | US_ITS ---
STUDY: ULTRASOUND BREAST - LEFT REASON FOR EXAM: Female, 48 years old. Abnormal screening mammogram. TECHNIQUE: Axial and longitudinal images of the LEFT breast were performed with a high resolution ultrasound transducer. # OF IMAGES: [id number] COMPARISON: Screening mammogram 03/21/2024 FINDINGS: LEFT Breast: Heterogeneous background echotexture. At 2:00, 8 cm from nipple, ultrasound confirms an 8 mm oval parallel indistinct hypoechoic mass with no posterior features not consistent with a simple cyst and therefore ultrasound-guided vacuum-assisted core biopsy is recommended.: US/Breast Limited Unilateral IMPRESSION: Ultrasound confirms an 8 mm hypoechoic mass and ultrasound vacuum assisted core biopsy is recommended. ASSESSMENT CATEGORY: BIRADS Category 4: Suspicious. Biopsy Should Be Considered. A letter regarding these results will be sent to the patient by the facility within 30 days. Electronically Signed: Carter Roa MD at 15:12 EST ,
== END | disposition home or self-care (01) ==
LOC: OPUS 07:56
PROVIDERS: PCP Internal Medicine; Referring Provider Nurse Practitioner Family; Visit Provider Nurse Practitioner Family
DX: N63.21 Unspecified lump in the left breast, upper outer quadrant (principal)
CPT/HCPCS: 76642

== ENCOUNTER → 2024-04-06 | Outpatient (CLI) | payer OTHER, SELFPAY ==
--- NOTE | 2024-04-06 | BRBX_PTH ---
PATIENT: VINITA PLUMMER LOC: [facility] U#:[id number] AGE/SX: 48/F ROOM: RE04/06/[address]: Dr. Felicity Rodríguez MD : 1975 BED: DIS: 04/06/2024 SPEC #: [id number] RECD: 04/06/24 15:17 STATUS: JIMMY REFredy #: [id number] AVERY: 04/06/24 00:[address]: Felicity Rodríguez DEPT: SURGICAL PATHOLOGY RECD BY: Julissa Mejia ENTERED: 04/07/24 09:46 SP TYPE: BREAST BX OTHR DR: Dr. Sheree Evans, DO Tissues: Left breast, NOS Procedures: Surgery Specimen Level IV HEADER OPERATION: Ultrasound guided breast biopsy - left PRE-OP DIAGNOSIS: Left breast mass TISSUE SUBMITTED: Left breast mass, 2o'clock, 8cm from nipple Ischemic Time: 1 minute Fixation Time: <48 hours MICROSCOPIC DIAGNOSIS Left breast mass, ultrasound guided core biopsy: Focal intraductal hyperplasia with mild atypia. Adenosis and fibrocystic changes. Chronic inflammation. Negative for malignancy. See comment. 04/10/2024 COMMENT Correlation with clinical, radiologic findings and appropriate follow up are necessary. MICROSCOPIC DESCRIPTION Slides are reviewed. GROSS DESCRIPTION Received in fixative is one container labeled with the patient's name and designated Left breast mass. The specimen consists of multiple elongated fragments of lynch-yellow fibroadipose tissue that in aggregate measure 2.0 x 0.8 x 0.1 cm. The specimen is totally submitted in one cassette. 04/07/2024 TC:5 CPT:20714
--- NOTE | 2024-04-06 14:18 | US_ITS ---
EXAM: Ultrasound guided left breast biopsy HISTORY: left breast mass COMPARISON: Mammogram from 03/21/2024, ultrasound from 03/27/2024 FINDINGS: The previously noted 0.8 x 0.6 x 0.5 cm mass at 2:00, 8 cm on the nipple was biopsied under sonographic guidance. 3 separate passes with mammotome vacuum assisted needle were performed with sonographic guidance. An ultra clip ribbon marked was placed after biopsy.. US/US Breast Biopsy 1st Lesion IMPRESSION: Successful ultrasound-guided biopsy of left breast lesion Final BI-RADS categorization and assessment to be determined after pathology report Electronically Signed: Bobby Barcenas MD at 8:17 EST ,
--- NOTE | 2024-04-06 15:07 | PCM.OPRPT ---
Operative Report (Standard) Operative Information Date of Procedure: 04/06/24 Pre-Operative Diagnosis: Left breast mass Post-Operative Diagnosis: Same Surgery/Procedure Performed: Ultrasound-guided left breast biopsy liquefied natural gas operator: No Type of Anesthesia: Local Procedure Start Time: 14:50 Procedure Stop Time: 15:00 Select all DRAINS/GRAFTS/IMPLANTS that apply: Implanted device Implanted device details: Bard dual ultraclip Estimated Blood Loss: < 10 cc Specimen collected: Yes Description of specimen(s) removed: Left breast mass 2:00 8 cm from nipple Description of surgery: Procedure: Left ultrasound-guided core biopsy Indications: 48year-old female with hypoechoic nodule at 2:00 in the left breast 8 centimeters from the nipple. Risk benefits were discussed the patient and she elected to proceed with ultrasound guided core biopsy with clip placement Description of procedure: Patient was brought into the ultrasound room in the left breast was marked. A timeout was completed verifying correct patient, procedure, site, specially, prior to beginning procedure. The left breast was prepped and draped in usual sterile fashion and using local anesthesia was obtained with 1% lidocaine with epi. The lesion was located with the ultrasound. Small incision was made with 11 blade to introduced the mammotome through the skin. Under ultrasound guidance multiple core samples were obtained using then 13-gauge mammotome and sent in formalin for pathology. The Bard dual ultraclip was then deployed into the biopsy cavity under ultrasound guidance and a picture was taken. Upon completion procedure hemostasis was obtained and a Steri-Strip and OpSite were placed. Patient was then taken to the mammography suite for clip verification. The clip was verified. The patient tolerated the procedure well and was discharged from the breast imaging department good condition. Surgical Findings: 2:00 8 cm left breast lesion appeared to be completely removed mammotome Complications Complications: No
== END | disposition home or self-care (01) ==
LOC: OPUS 14:18
PROVIDERS: PCP Internal Medicine; Referring Provider Surgery; Visit Provider Surgery
DX: N63.21 Unspecified lump in the left breast, upper outer quadrant (principal)
CPT/HCPCS: 19083; 88305

== ENCOUNTER 2024-04-20 09:19 | Day surgery (SDC) | payer OTHER, SELFPAY ==
[2024-04-20] VITALS (10 sets, daily range): BP systolic 72–121; BP diastolic 54–88; PULSE 63–89; RESP 14–16; TEMP 36.2–36.9; O2SAT 93–97; BMI 29.1
--- NOTE | 2024-04-20 10:00 | BI_ITS ---
SURGICAL BREAST SPECIMEN RADIOGRAPH CLINICAL: Document presence of tissue clip marker in biopsy specimen. FINDINGS: Specimen shows presence of tissue clip marker. Electronically Signed: Luis Angel Bettencourt MD at 7:23 EST , BI/Breast Biopsy Specimen IMPRESSION: undefined
--- NOTE | 2024-04-20 11:02 | PCM.PRE.AN2 ---
ASA Classification* ASA Classification ASA Classification: 2 Assessment & Plan Anesthesia* Anesthesia Assessment Anesthesia Assessment: Discussed sedation and/or anesthesia options, risks, benefits, and alternatives with patient/parents/legal guardian/POA. Questions invited. The patient/parents/legal guardian/POA seems to understand and agrees to proceed with anesthesia plan. Reviewed the physical assessment, medical history, allergy history and patient home medications list prior to surgery/procedure/anesthetic and documented any changes. Performed airway and anesthesia risk assessments. Anesthesia Type Anesthesia Type: MAC Anesthesia Focused Assessment* Temperature: 97.3 F Pulse Rate: 89 Blood Pressure: 121/88 Respiratory Rate: 16 Pulse Ox: 97 Airway Assessment Mouth opens: >3 cm Mallampati Score: II Focused Labs Anesthesia Preop lab: CBC WBC 5.8 K/mm3 (4.4-11.0) 01/24/24 06:42 RBC 4.55 M/mm3 (4.2-5.4) 01/24/24 06:42 Hgb 14.3 g/dL (12.0-15.0) 01/24/24 06:42 Hct 42.8 % (37-47) 01/24/24 06:42 Plt Count 277 K/mm3 (150-450) 01/24/24 06:42 CHEMISTRY Potassium 3.6 mmol/L (3.5-5.1) 01/24/24 06:42 Sodium 141 mmol/L (136-145) 01/24/24 06:42 Phosphorus 3.1 mg/dL (2.5-4.9) 01/24/24 06:42 BUN 17 mg/dL (7-18) 01/24/24 06:42 Creatinine 0.84 mg/dL (0.55-1.02) 01/24/24 06:42 Glucose 97 mg/dL (74-106) 01/24/24 06:42 TSH 1.66 uIU/mL (0.358-3.74) 02/18/18 10:27 COAG PT 13.6 SECONDS (11.9-14.4) 10/18/12 14:57 Pre-Assessment Diagnosis/Proposed Procedure Planned Operative Procedure(s): Left breast stereo wire local excision breast biopsy Anesthesia History Anesthesia History - senior sourcing manager: Anesthesia History - senior sourcing manager Hx Hospitalization No 01/09/25 08:57 Any Problems With Anesthesia No 04/13/24 08:57 Cholinesterase deficiency No 04/13/24 08:57 You/Your Family Experience No 04/13/24 08:57 fever (hyperthermia) with Relationship Recent Exposure to Contagious No 04/20/24 10:56 Disease Does patient have nerve No 04/13/24 08:57 stimulator Patient instructed to have device shut off --Does patient have Pacemaker No 04/20/24 10:56 or ICD? When Was Last Pacemaker Check QUESTION #4 FULL TEXT: You/Your Family Experience fever (hyperthermia) with Anesthesia Last Oral Intake Last Oral intake: Last Oral Intake NPO since 19:00 04/20/24 10:56 Meds taken in AM with sips of No 04/20/24 10:56 water? Meds patient instructed to take am of surgery PONV PONV - senior sourcing manager: PONV - senior sourcing manager Female Yes 04/13/24 08:57 HX of Motion Sickness Yes 04/13/24 08:57 HX of N/V After Surgery No 04/13/24 08:57 Non-Smoker Yes 04/13/24 08:57 Duration of Surgery greater Yes 04/13/24 08:57 than 60 minutes Number of Risk Factors 4 04/13/24 08:57 PONV Score Severe Risk 04/13/24 08:57 Height & Weight Height & Weight: Anesthesia: Height & Weight Height 5 ft 5 in 04/20/24 10:56 Weight: 79.4 kg 04/20/24 10:56 Body Mass Index (BMI) 29.1 04/20/24 10:56 Respiratory Assessment Respiratory Assessment - senior sourcing manager: Respiratory Tract Infection Hx - senior sourcing manager Hx Respiratory Tract Infection No 04/13/24 08:57 STOP Sleep Apnea STOP Sleep Apnea - senior sourcing manager: STOP Sleep Apnea - senior sourcing manager Hx Hypertension No 04/13/24 08:57 Hx Sleep Apnea No 04/13/24 08:57 CPAP BIPAP Do you snore loudly (louder No 04/13/24 08:57 than talking or can be heard Do you often feel tired/ No 04/13/24 08:57 fatigued/ sleepy during daytime? Has anyone observed you stop No 04/13/24 08:57 breathing during sleep? STOP Results Negative 04/13/24 08:57 QUESTION #5 FULL TEXT : Do you snore loudly (louder than talking or can be heard through closed doors)? Tobacco Use History Tobacco Use History - senior sourcing manager: Tobacco Use History - senior sourcing manager Tobacco Use Smoking Status Never smoker 04/13/24 08:57 Hx Tobacco Use No 04/13/24 08:57 Years Smoking Packs Smoked per Day Smoking Cessation Date was within the last 15 years Hx Smoking Cessation Date Hx Smoking Cessation Counseling Hematologic Medial History Hematologic Hx - senior sourcing manager: Hematologic Medical Hx - independent freight agent Hx of Blood Transfusion No 04/13/24 08:57 Hx of Transfusion in last 3 No 04/13/24 08:57 Months Date of Last Transfusion (if within last 3 months) Ever experience any problems No 04/13/24 08:57 with transfusion(s)? Specify any problems Hx of Preganancy in last 3 No 04/13/24 08:57 Months Nurse Filling Out Transfusion DSCHRIBER 04/13/24 08:57 & Questions: Date: 04/13/24 04/13/24 08:57 Time: 08:57 04/13/24 08:57 Patient unable to answer at this time (ie. confused, unrespo /Reproduction History /Reproductive History - senior sourcing manager: /Reproductive Hx- senior sourcing manager Hx Now No 04/13/24 08:57 Gestational Age (in weeks): EDC: Hx Hx Para Hx Section SAB No 04/13/24 08:57 PFSH Medical History Left breast mass Right shoulder pain Wears contact lenses Cancer Alcohol use Migraine headache Non-smoker Home Medications ?Medication ?Instructions ?Recorded ?Last Taken ?Type multivitamin with minerals-folic 1 tab PO DAILY 04/19/23 04/18/24 History acid 200 mcg chewable tablet norethindrone acetate 5 mg tablet 5 mg PO DAILY 04/19/23 04/10/24 History Allergy/AdvReac Type Severity Reaction Status Date / Time Sulfa (Sulfonamide Allergy Hives Verified 04/20/24 09:50 Antibiotics) Surgical History Hx of colonoscopy Hx of melanoma excision History of left salpingo-oophorectomy Hx of hysterectomy Social History household members: spouse current occupational status: employed current occupation: RN Smoking Status: Never smoker Review of Systems (Anesthesia) ROS Narrative System reviewed and no additional complaints, except as documented.
--- NOTE | 2024-04-20 11:30 | BRBX_PTH ---
PATIENT: VINITA PLUMMER APRIL [place] [facility] [place][id number] AGE/SX: 48/F ROOM: RE04/20/[address]: Dr. Villa Klein MD : 1975 BED: DIS: 04/20/2024 SPEC #: [id number] RECD: 04/20/24 16:04 STATUS: JIMMY LIU #: [id number] AVERY: 04/20/24 11:[address]: Villa Klein DEPT: SURGICAL PATHOLOGY RECD BY: Roman Van ENTERED: 04/21/24 07:14 SP TYPE: BREAST BX OTHR DR: Dr. Sheree Evans DO Tissues: Left breast, NOS Procedures: Surgery Specimen Level V HEADER OPERATION: Left breast stereo wire localization excision, breast biopsy PRE-OP DIAGNOSIS: Atypical ductal hyperplasia of left breast TISSUE SUBMITTED: Left breast tissue * long stitch -lateral, short stitch-superior* MICROSCOPIC DIAGNOSIS Left breast tissue, stereotactic wire localization, excisional biopsy: Intraductal hyperplasia with focal atypia. Fibrocystic changes and adenosis. Focal microcalcifications. Changes consistent with previous biopsy site. Skin, no pathologic diagnosis. Negative for malignancy. See comment. 04/26/2024 COMMENT Please make reference to previous specimen [id number] left breast mass, ultrasound guided core biopsy with diagnosis of focal intraductal hyperplasia with mild atypia, adenosis and fibrocystic changes. This case has been reviewed in consultation with Dr. Portillo who concurs with the above diagnosis. IDC:PW MICROSCOPIC DESCRIPTION Slides are reviewed. GROSS DESCRIPTION Received is one container labeled with the patient's name and not further designated. The specimen consists of a piece of fibroadipose tissue with needle localization measuring 6.5 x 4 x 3cm. The specimen is oriented as follows: short stitch- superior, long stitch- lateral. A piece of the skin is noted as the lateral portion of the specimen measuring 2 x 0.5cm. The specimen is inked as follows: anterior - yellow, posterior - black, superior - blue, inferior - green, medial - red and lateral - orange. Sections reveal a lynch indurated area adjacent to the biopsy site measuring 2 x 2 x 1.5cm. This area is very close to the inferior, anterior and posterior margins. No obvious mass or lesion is identified. Entry Level Chemist sections are submitted in twelve cassettes as follows: 1- perpendicular medial, lateral, inferior, superior margin and skin, 2-7- indurated area adjacent to biopsy site, entirely submitted, 8-12- textile machinery sales representative sections away from the biopsy site. Sections are submitted after additional fixation. About 90% of the specimen is submitted. 04/24/2024 TC:5 CPT:38221
--- NOTE | 2024-04-20 12:05 | PCM.OPRPT ---
Problems Associated Problem List Diagnoses (1) Atypical ductal hyperplasia of left breast: Procedures Integumentary 16xxx-193xx: 88997 Perq dev breast 1st [facility] Operative Report (Standard) Operative Information Date of Procedure: 04/20/24 Pre-Operative Diagnosis: Atypical ductal hyperplasia of left breast Post-Operative Diagnosis: Same Surgery/Procedure Performed: Stereotactic localization wire placement fashion supervisor: No Type of Anesthesia: Local RN Documented Start/Stop Times: Operation Date: 04/20/24 11:30 Case Time Into Pre-Op 04/20/24 09:42 Procedure Start Time: 10:25 Procedure Stop Time: 10:50 Select all DRAINS/GRAFTS/IMPLANTS that apply: None Estimated Blood Loss: Minimal Specimen collected: No Description of surgery: The patient is a 48-year-old female who recently underwent a biopsy of the left breast that showed atypical ductal hyperplasia. I recommended stereotactic wire localized lumpectomy/excisional biopsy. She presents today for wire placement. After obtaining informed consent, the patient was placed prone on the mammotome table. The left breast was then placed in a compression in the marking clip from the biopsy was identified. Additional views were obtained. The marking clip was then targeted. The needle and wire were then placed by first prepping the skin. I then injected local anesthetic. The needle and wire were then inserted. Once the wire was in place the needle was withdrawn leaving the wire in place. This was trimmed to a shorter length post wire placement images were obtained and showed the wire to be targeted to the clip. The tip of the wire was several centimeters beyond. She tolerated this procedure well. The wire was then secured. She was removed from the mammotome table and underwent post procedure mammogram. Surgical Findings: See procedure note Complications Complications: No Admit VTE Documentation VTE Present on Admission: No VTE Mechan Device Prophylaxis: None VTE Pharm Prophylaxis ordered?: No Reason prophylaxis not ordered: Treatment Not Indicated
[2024-04-20] MEDS: Acetaminophen 325 MG Tablet 650 MG PO (13:45)
--- NOTE | 2024-04-20 14:56 | PCM.HP.STD ---
HPI - General General Date of Admission: 04/20/24 Date of Service: 04/20/24 Chief Complaint: Abnormal left breast mammogram HPI Narrative VINITA PLUMMER, is a 48 F who presents for left breast needle localized excisional biopsy. She is recently found to have atypical ductal hyperplasia. We recommended excision PFS Medical History Atypical ductal hyperplasia of left breast Left breast mass Right shoulder pain Wears contact lenses Cancer Alcohol use Migraine headache Non-smoker Home Medications ?Medication ?Instructions ?Recorded ?Last Taken ?Type multivitamin with minerals-folic 1 tab PO DAILY 04/19/23 04/18/24 History acid 200 mcg chewable tablet norethindrone acetate 5 mg tablet 5 mg PO DAILY 04/19/23 04/10/24 History Allergy/AdvReac Type Severity Reaction Status Date / Time Sulfa (Sulfonamide Allergy Hives Verified 04/20/24 09:50 Antibiotics) Surgical History Hx of colonoscopy Hx of melanoma excision History of left salpingo-oophorectomy Hx of hysterectomy Social History household members: spouse current occupational status: employed current occupation: RN Smoking Status: Never smoker Vital Signs Vital Signs Vital Signs: 04/20/24 10:56 04/20/24 10:56 04/20/24 11:02 Temperature 97.3 F L 97.3 F L Temperature Source Temporal Pulse Rate 89 89 Respiratory Rate 16 16 Respiratory Pattern Normal Blood Pressure 121/88 H 121/88 H Blood Pressure Mean 99 Blood Pressure Source Monitor Blood Pressure Position Semi-Fowlers Blood Pressure Location Left Arm Pulse Ox 97 97 Oxygen Delivery Method Room Air Weight Weight: 175 lb 0.752 oz Body Mass Index (BMI) 29.1 Assessment & Plan Assessment/Plan (1) Atypical ductal hyperplasia of left breast: PLAN: Plan 48-year-old female in need of a left breast needle localized lumpectomy/excisional biopsy. We discussed the details of the planned procedure. Surgery will begin momentarily Charges/Coding Visit Charges Inpatient E&M: 46646 Init Hosp L1
[2024-04-20] MEDS: Bupivacaine Mpf 0.5% 30 ML VIAL (15:27)
--- NOTE | 2024-04-20 16:31 | EX.PCM.DISCH ---
Discharge Instructions Follow Up Care Test Results: Test results from this visit will be discussed in further detail at your follow-up appointment, if applicable. Discharge Plan Admission Primary Reason for Your Visit: left breast excisional biopsy Attending Provider: Villa Klein Primary Care Provider: Sheree Evans Instructions Print Language: Spanish Discharge Orders/Prescriptions Prescriptions: New oxycodone-acetaminophen [Percocet] 5-325 mg tablet 1 tab PO Q8H PRN (Reason: pain) 3 Days Qty: 10 0RF Continued multivit with min-folic acid 200 mcg tablet,chewable 1 tab PO DAILY norethindrone acetate 5 mg tablet 5 mg PO DAILY Patient Comments: TAKE 1 TABLET BY MOUTHIONCE DAILY Referrals / Follow Up: Sheree Evans DO [Primary Care Provider] - Disposition Disposition (needs filled in before D/C Order can be placed): Home, Self Care
--- NOTE | 2024-04-20 16:34 | PCM.OPRPT ---
Problems Associated Problem List Diagnoses (1) Atypical ductal hyperplasia of left breast: Procedures Integumentary 16xxx-193xx: 39298 Biopsy of breast open Operative Report (Standard) Operative Information Date of Procedure: 04/20/24 Pre-Operative Diagnosis: Atypical ductal hyperplasia of left breast Post-Operative Diagnosis: Same Surgery/Procedure Performed: Wire localized left breast excisional biopsy web developer: Yes Flight Control Tower Operator: Shannon Umana Tasks completed by assistant track coach: Closing and Retracting Additional human resources benefits assistant?: No Type of Anesthesia: Local and MAC RN Documented Start/Stop Times: Operation Date: 04/20/24 11:30 Case Time Into Pre-Op 04/20/24 09:42 Out of Pre-Op 04/20/24 14:59 Anesthesia Start 04/20/24 15:03 Into Room 04/20/24 15:03 Procedure Start 04/20/24 15:27 Procedure End 04/20/24 16:10 Anesthesia End 04/20/24 16:18 Out of Room 04/20/24 16:18 Into Recovery 04/20/24 16:20 Procedure Start Time: 15:27 Procedure Stop Time: 16:10 Select all DRAINS/GRAFTS/IMPLANTS that apply: None Special Medications: None Estimated Blood Loss: 5 mL Fluids Replaced: None Specimen collected: Yes Description of specimen(s) removed: Left breast tissue Description of surgery: The patient is a 48-year-old female who recently underwent routine screening mammography. She is found to have an abnormality which was followed up by ultrasound. This was read as a BI-RADS 4 and biopsy was recommended. The patient was seen in office and a biopsy of this left breast abnormality was performed. Pathology came back as atypical ductal hyperplasia. I saw the patient in the office after this biopsy and recommended excisional biopsy to rule out other associated pathology. I explained to her that this typically is considered a marker of increased risk of breast cancer involving both breasts but in itself it is not considered cancer. After obtaining informed consent, the patient was brought to the operating room today. Earlier in the day a stereotactic wire placement for localization purposes was performed. I dictated this procedure separately. Once in the operating room the left breast was then prepped and draped in the usual sterile manner after MAC anesthesia was induced. Timeout was performed. An ellipse incision was made around the entry point of the guidewire after injecting local anesthetic. Bovie electrocautery was then used dissect down through the subcutaneous tissues down to the tip of the wire. Once the specimen was removed, the specimen was oriented such that it short stitch nichole the superior aspect of the specimen and long stitch nichole the lateral aspect of the specimen. This was then taken to the radiology department to have a specimen radiograph performed. The radiograph showed that the marking clip was present within the specimen. The specimen was then sent to pathology. In the meantime the biopsy site was then copiously irrigated and hemostasis was achieved using electrocautery. Hemostasis was excellent. The wound was then closed using 3-0 Vicryl in a subdermal layer. 4-0 Vicryl was then used to close the skin. Skin glue was then applied. The patient was then awakened from anesthesia. A covering dressing consisting of gauze fluffs and an Abhishek wrap was applied to the chest. Once she was awake, she was taken to recovery in good condition. A CASINO CASHIER MANAGER was utilized as a transport assistant. Her role included positioning the patient, assistance with retraction as well as skin closure. Surgical Findings: Please see operative note Complications Complications: No Admit VTE Documentation VTE Present on Admission: No VTE Mechan Device Prophylaxis: SCD's VTE Pharm Prophylaxis ordered?: No Reason prophylaxis not ordered: Treatment Not Indicated
--- NOTE | 2024-04-20 16:37 | PCM.POST.ANE ---
Anesthesia: Postop Eval I Current Vital Signs Temperature: 97.2 F Pulse Rate: 70 Blood Pressure: 81/55 Respiratory Rate: 14 Pulse Ox: 95 Oxygen Delivery Method: Room Air Assessment Airway patent: Yes Spontaneous unlabored respirations: Yes Mental status: Asleep nausea: No Vomiting: No Anesthesia Complication: No Fluid Hydration Crystalloid volume administer (ml): 30 Total IV fluid infused: 30 Progress Note Anesthesia document: Postop Eval 1 completed: Yes
--- NOTE | 2024-04-20 16:58 | PCM.POSTANE2 ---
Anesthesia Postop Eval I Sum Postop Eval Completion status Anesthesia document: Postop Eval 1 completed: Yes Anesthesia Postop Eval I Summary Anesthesia Postop Eval I Summary: Anesthesia Postop Eval I: Assessment Summary Airway patent Yes 04/20/24 16:39 [email or web address] Spontaneous unlabored Yes 04/20/24 16:39 [email or web address] respirations Mental status Asleep 04/20/24 16:39 [email or web address] nausea No 04/20/24 16:39 [email or web address] Vomiting No 04/20/24 16:39 [email or web address] Anesthesia Postop Eval I: Fluid Summary Crystalloid volume administer 30 04/20/24 16:39 [email or web address] (ml) Colloids volume administered ( ml) Blood Product volume administered (ml) Total IV fluid infused 30 04/20/24 16:39 [email or web address] Anesthesia Postop Eval I: Summary Notes Anesthesia Complication No 04/20/24 16:39 [email or web address] Anesthesia Complication Comment: Post-operative progress note Anesthesia: Postop Eval II Evaluation Mental status: Awake Pain Level: 0 nausea: No Vomiting: No
--- NOTE | 2024-04-20 17:20 | DCINST_ITS ---
Discharge Instructions Diet Discharge Diet: Light diet - advance as tolerated Activity Return to work on:: 04/24/24August shower in (days): 1 Ice area for (Minutes): 30 Lifting Restrictions: None Additional Activity Instructions:: Wear sports bra or Abhishek wrap for compression Dressing / Incision Call your doctor if your incision/area has: Continuous Slow Oozing, Sudden Increased Bleeding, Increased Pain/ Swelling, Increased Redness and Swelling at the incision site Call your doctor if you observe: Fever of 101 or Higher Remove Dressing in: 1 day Cleanse incision/area with: Soap & Water Additional Dressing/Incision Instructions:: Okay to shower tomorrow Follow Up Care Please Follow Up With: Villa Klein MD When: 1 to 2 weeks Test Results: Test results from this visit will be discussed in further detail at your follow- up appointment, if applicable. Discharge Plan Admission Primary Reason for Your Visit: left breast excisional biopsy Attending Provider: Villa Klein Primary Care Provider: Sheree Evans Instructions Print Language: Mongolian Discharge Orders/Prescriptions Prescriptions: New oxycodone-acetaminophen [Percocet] 5-325 mg tablet 1 tab PO Q8H PRN (Reason: pain) 3 Days Qty: 10 0RF Continued multivit with min-folic acid 200 mcg tablet,chewable 1 tab PO DAILY norethindrone acetate 5 mg tablet 5 mg PO DAILY Patient Comments: TAKE 1 TABLET BY MOUTHIONCE DAILY Referrals / Follow Up: Sheree Evans DO [Primary Care Provider] - Disposition Disposition (needs filled in before D/C Order can be placed): Home, Self Care
== END 2024-04-20 17:59 | disposition home or self-care (01) ==
LOC: SDC 09:19 → AC 09:20
PROVIDERS: PCP Internal Medicine; Referring Provider Surgery; Visit Provider Surgery
PROC: (CPT 19101; principal; 2024-04-20 11:15)
DX: N60.12 Diffuse cystic mastopathy of left breast (principal); Z90.710 Acquired absence of both cervix and uterus; R92.0 Mammographic microcalcification found on diagnostic imaging of breast
CPT/HCPCS: 19101; 00400; 19283; 19281; 76098; 88307; A4216; J2405

== ENCOUNTER 2024-06-13 07:28 | Outpatient (CLI) | payer OTHER, SELFPAY ==
--- NOTE | 2024-06-13 07:32 | BD_ITS ---
PROCEDURE: DEXA BONE DENSITY STUDY REASON FOR EXAM: SCREENING FOR OSTEOPOROSIS F, age 48 y/o . TECHNIQUE: DEXA scan of lumbar spine and bilateral hips. COMPARISON: None. FINDINGS: T-SCORES Lumbar spine: 0.6 (BMD 1.114) Left hip: 0.8 (BMD 1.039) Right hip: 1.1 (BMD 1.070) FRAX* Results: Not reported because premenopausal woman. *FRAX is a trademark of the [employer]'s [place] for Metabolic Bone Disease, World Health Organization (WHO) Collaborating [place]. 1-The 10-year probability of fracture may be lower than reported if the patient has received treatment. 2-Major Osteoporotic Fracture: Clinical Spine, Forearm, Hip or Shoulder. The T-scores are also available for review on the [facility] PACS or by accessing the [facility] electronic medical record. BD/Dexa Bone Density Study IMPRESSION: Normal lumbar spine and bilateral hips. Reading Location: [facility]
== END 2024-06-13 23:59 | disposition home or self-care (01) ==
LOC: OPBD 07:29
PROVIDERS: PCP Internal Medicine; Referring Provider Nurse Practitioner Family; Visit Provider Nurse Practitioner Family
DX: Z13.820 Encounter for screening for osteoporosis (principal)
CPT/HCPCS: 77080

== ENCOUNTER → 2024-08-14 | Outpatient (CLI) | payer OTHER, SELFPAY ==
[2024-08-14 07:22] LABS: Absolute Lymphocyte Count 1.81 X10^3/uL (0.83-4.51); Basophil# 0.02 X10^3/uL; Basophil% 0.4 % (0-1); Eosinophil# 0.15 X10^3/uL; Eosinophils% 2.7 % (0-5); Hematocrit 42.3 % (37-47); Lymphocyte # 1.81 X10^3/ul (0.83-4.51); Mean Corp Hgb Conc 33.1 g/dL (32-36); Mean Corpuscular Hgb 31.1 pg (27.0-32.0); Mean Platelet Vol. 9.1 fl (6.2-12.0); Monocyte# 0.45 X10^3/uL; Monocyte% 8.2 % (0-10); NRBC Flagged by Analyzer 0 % (0-5); Neutrophil # 3.03 X10^3/uL (2.7-7.7); Neutrophil % 55.3 % (47-70); Platelet Count 254 K/mm3 (150-450); RBC Distribution Width CV 12.4 % (11.6-14.6); RBC Distribution Width SD 42.9 fl (35.1-43.9); White Blood Count 5.5 K/mm3 (4.4-11.0)
[2024-08-14 07:55] LABS: ALB/GLOB Ratio 1.5 RATIO (0.9-2.4); AST(SGOT) 30 U/L (<=31); Alanine Aminotransfer ALT/SGPT 34 U/L (<=34); Albumin, Serum 4.1 g/dL (3.5-5.0); Alkaline Phosphatase 56 U/L (35-104); Anion Gap 10 (5-15); BUN 16 mg/dL (4-19); BUN/Creat Ratio 17.7 RATIO (10-20); Calcium,Total 8.7 mg/dL (7.6-11.0); Carbon Dioxide 20.3 mmol/L (21.0-32.0); Chloride 111 mmol/L (98-108); Creatinine, Serum 0.88 mg/dL (0.70-1.20); EST Glomerular Filtration Rate 80 (>60); Globulin 2.8 g/dL (2.2-4.2); Glucose 100 mg/dL (70-99); Potassium 3.9 mmol/L (3.3-5.1); Protein, Total 6.8 g/dL (5.9-8.4); Sodium Level 141 mmol/L (133-145); Total Bilirubin 0.42 mg/dL (0.00-1.30)
== END | disposition home or self-care (01) ==
LOC: LAB 07:07
PROVIDERS: PCP Internal Medicine; Referring Provider Nurse Practitioner Family; Visit Provider Nurse Practitioner Family
DX: N60.92 Unspecified benign mammary dysplasia of left breast (principal); N63.20 Unspecified lump in the left breast, unspecified quadrant
CPT/HCPCS: 36415; 80053; 85025

== ENCOUNTER → 2024-09-04 | Outpatient (CLI) | payer OTHER, SELFPAY ==
--- NOTE | 2024-09-04 13:48 | MRI_ITS ---
PROCEDURE: BREAST BILATERAL W/O AND W 09/04/2024 REASON FOR EXAM: MAMMARY DYSPLASIA 48-year-old female presents for high-risk screening MRI due to history of ADH status post left excisional biopsy and dense breast tissue. TECHNIQUE: Bilateral breast MRI using a dedicated bilateral breast coil before and following intravenous contrast. Images reviewed with subtraction and DynaCAD. CONTRAST: 16 mL IV Clariscan COMPARISON: 04/06/2024, 03/27/2023 FINDINGS: Amount of Fibroglandular Tissue: Heterogeneous fibroglandular tissue. Background Parenchymal Enhancement: Moderate. This may decrease the sensitivity of breast MRI. RIGHT Breast: No suspicious mass or non-mass enhancement. LEFT Breast: No suspicious mass or non-mass enhancement. Other Findings: No suspicious axillary or internal mammary lymph nodes. Visualized portions of the thoracic and abdominal viscera are unremarkable. MRI/Breast Bilateral W/O and W IMPRESSION: OVERALL FINAL ASSESSMENT: BIRADS 1 NEGATIVE Reading Location: [id number]
== END | disposition home or self-care (01) ==
LOC: OPMRI 13:22
PROVIDERS: PCP Internal Medicine; Referring Provider Nurse Practitioner Family; Visit Provider Nurse Practitioner Family
DX: N60.99 Unspecified benign mammary dysplasia of unspecified breast (principal)
CPT/HCPCS: 77049; A9575; A4216; C8908

== ENCOUNTER → 2024-10-16 | Outpatient (CLI) | payer OTHER, SELFPAY ==
--- NOTE | 2024-10-16 16:17 | RAD_ITS ---
PROCEDURE: HAND MIN 3 VIEWS 10/16/2024 REASON FOR EXAM: PAIN TECHNIQUE: HAND MIN 3 VIEWS COMPARISON: No FINDINGS: Lateral wrist osteoarthritis. 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 Hand osteoarthritis, mainly interphalangeal joint space narrowing and osteophyte formation. Possible small erosions, middle phalangeal bases, 3rd and 4th digits.. No acute bone or soft tissue pathology. RAD/Hand Min 3 Views IMPRESSION: Wrist and hand osteoarthritis. Reading [facility]
--- NOTE | 2024-10-16 16:17 | RAD_ITS ---
PROCEDURE: WRIST MIN 3 VIEWS 10/16/2024 REASON FOR EXAM: PAIN TECHNIQUE: WRIST MIN 3 VIEWS COMPARISON: No FINDINGS: Lateral wrist osteoarthritis. 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 No acute bone or soft tissue pathology. RAD/Wrist min 3 Views IMPRESSION: Lateral wrist osteoarthritis. Reading Location: [place] [address]
== END | disposition home or self-care (01) ==
LOC: MTRAD 16:17
PROVIDERS: PCP Internal Medicine; Referring Provider Orthopaedic Surgery Sports Medicine; Visit Provider Orthopaedic Surgery Sports Medicine
DX: M25.532 Pain in left wrist (principal); M79.645 Pain in left finger(s)
CPT/HCPCS: 73110; 73130

== ENCOUNTER → 2025-03-23 | Outpatient (CLI) | payer OTHER, SELFPAY ==
--- NOTE | 2025-03-23 08:00 | BI_ITS ---
EXAM: SCRN MAMM (CAD)W/DHEERAJ BILAT DATE: 03/23/2025 CLINICAL HISTORY: F, Age 49 y/o , SCREENING FOR BREAST CA TECHNIQUE: Procedure Code: [id number] Modality: MG Procedure: SCRN MAMM (CAD)W/DHEERAJ BILAT COMPARISON: Prior exam(s) dated 03/21/2024, 03/19/2023. FINDINGS: TISSUE DENSITY: The breasts are heterogeneously dense, which may obscure small masses. The mammogram demonstrates that the patient has dense breasts. Supplemental screening with whole breast ultrasound or MRI may be considered for further evaluation. Bilateral Breast Mammographic Findings: No significant masses, calcifications or other abnormalities are identified. BI/SCRN MAMM (CAD)W/DHEERAJ BILAT IMPRESSION: There is no mammographic evidence of malignancy. OVERALL FINAL ASSESSMENT BI-RADS 1: NEGATIVE. RECOMMENDATION: Routine annual follow-up in 1 Year Additional Recommendation none A letter with findings and recommendations will be mailed to the patient. Reading Location: [id number]
== END | disposition home or self-care (01) ==
LOC: OPBI 08:04
PROVIDERS: PCP Internal Medicine; Referring Provider Internal Medicine Hematology & Oncology; Visit Provider Internal Medicine Hematology & Oncology
DX: Z12.31 Encounter for screening mammogram for malignant neoplasm of breast (principal)
CPT/HCPCS: 77063; 77067